=== PATIENT | female | born 1955 | race African-American/Black ===

== ENCOUNTER 2017-03-20 13:59 | Emergency (ER) | payer OTHER ==
[~2017-03-20] VITALS: Ht 160 cm; Wt 82.1 kg
[2017-03-20 15:03] VITALS: BP 137/87
--- NOTE | 2017-03-20 15:14 | Diagnostic Imaging Report ---
Indication: Fall Technique: CT maxillofacial was performed utilizing automated exposure control without intravenous contrast material. Axial and coronal images were generated. CT dose: Total DLP 546 mGycm; CTDI vol 28.4 mGy Comparison: None Findings: No acute fracture is identified. The mandible, midface and nasal bones are intact. The orbits are unremarkable. Paranasal sinuses and mastoid air cells are clear. The nasal septum is midline. The patient is edentate except for 2 left-sided mandibular teeth. There is. Focal lucency around the base of the teeth. Correlate for dental disease. Visualized intracranial compartment is unremarkable. Impression: No acute facial bone fracture Periapical lucency about only remaining left-sided mandibular teeth. Correlate clinically for dental disease. The CT scanner at [facility] is accredited by the [employer] and the scans are performed using protocols designed to limit radiation exposure to as low as reasonably achievable to attain images of sufficient resolution adequate for diagnostic evaluation.
[2017-03-20] MEDS ORDERED: TYLENOL EXTRA500 MG ORAL (15:28)
[2017-03-20 15:37] VITALS: BP 134/83
--- NOTE | 2017-03-20 22:50 | Emergency Room Report ---
History of Present Illness General Chief Complaint: General Complaint Source: Patient Present Illness HPI The patient is a 62-year-old female presenting for pain after slipping and falling today. She states that she was at work and climbing stairs when she slipped and fell forwards. She states that she caught herself with her hands but her face hit a step. She is now complaining of an 8/10 dull ache primarily to the nose and upper lip. Worse with touch. She denies loss of consciousness. She denies any other symptoms including nausea, vomiting, fever , chills, shortness of breath, chest pain, dizziness, blurred vision, neck pain Allergies: Coded Allergies: No Known Allergies (Unverified , 03/20/17) Patient History Past Medical History: see triage record Pertinent Family History: none Reviewed Nursing Documentation: PMH: Agreed, PSxH: Agreed Nursing Documentation-PMH Past Medical History: No History, Except For Hx Hypertension: Yes Hx Diabetes: Yes Review of Systems All Other Systems: negative except mentioned in HPI Physical Exam Vital Signs Date Time Temp Pulse Resp B/P (MAP) Pulse Ox O2 Delivery O2 Flow Rate FiO2 03/20/17 14:04 97.9 115 18 137/87 97 Room Air Sp02 EP Interpretation: reviewed, normal General Appearance: no apparent distress, alert, GCS 15, non-toxic Head: normocephalic, atraumatic Eyes: bilateral eye normal inspection, bilateral eye PERRL ENT: hearing grossly normal, normal pharynx, no angioedema, normal voice, other - TTP over mid nose with edema Neck: full range of motion, supple/symm/no masses Neurologic: alert, oriented x3, responsive, motor strength/tone normal, sensory intact, speech normal Psychiatric: judgement/insight normal, memory normal, mood/affect normal, no suicidal/homicidal ideation Skin: normal color, no rash, warm/dry, well hydrated Lymphatic: no adenopathy Medical Decision Making PA Attestation Dr. Judd is my supervising physician. Patient management was discussed with my supervising physician Diagnostic Impression: Primary Impression: Facial contusion Qualified Codes: S00.83XA - Contusion of other part of head, initial encounter ER Course The patient is a 62-year-old female presenting for pain after slipping and falling today. Ddx considered include but not limited to sprain/strain, fracture, contusion Physical exam: No apparent distress And O. x3 HEENT exam reveals tenderness to palpation and edema to the mid nose. No bleeding. No raccoon eyes or Clark sign No intraoral trauma Neck is soft and supple. Nontender CT scan of facial bones unremarkable The patient will be discharged home with pain medication. She'll follow up with her primary doctor. ER precautions given CT/MRI/US Diagnostic Results CT/MRI/US Diagnostic Results : Imaging Test Ordered: CT facial bones Impression unremarkable Last Vital Signs Date Time Temp Pulse Resp B/P (MAP) Pulse Ox O2 Delivery O2 Flow Rate FiO2 03/20/17 15:37 99 18 134/83 97 03/20/17 15:37 97.9 03/20/17 15:03 Room Air Status: improved Disposition: HOME, SELF-CARE Condition: Improved Scripts Acetaminophen* (TYLENOL EXTRA STRENGTH*) 500 Mg Tablet 500 MG ORAL Q8H Y for Prn Headache/Temp > 101, #30 TAB 0 Refills Prov: GABINO DOMINGUEZ 03/20/17 Patient Instructions: Facial or Scalp Contusion Additional Instructions: I discussed my findings with the patient. All questions and concerns have been answered. Treatment and medication compliance have been addressed. I advised the patient that they need to follow up with PMD in 3-5 days. Return to ED if symptoms worsen, new symptoms arise, or if needed for any reason. Patient verbalized understanding of discharge instructions. GABINO DOMINGUEZ Mar 20, 2017 22:50
== END 2017-03-20 15:38 | disposition home or self-care (01) ==
LOC: EMR 14:50
DX: S00.83XA Contusion of other part of head, initial encounter (principal); W10.9XXA Fall (on) (from) unspecified stairs and steps, initial encounter; Y92.89 Other specified places as the place of occurrence of the external cause; Y99.0 Civilian activity done for income or pay; I10 Essential (primary) hypertension; E11.9 Type 2 diabetes mellitus without complications
CPT/HCPCS: 70486; 99284